=== PATIENT | female | born 1995 | race Caucasian/White ===

== ENCOUNTER 2017-02-17 06:11 | Emergency (ER) | payer OTHER ==
[2017-02-17 06:51] LABS: BASOPHIL % 0.4 % (0-2); PLATELET COUNT 287 x10^3mcL (130-400); RED CELL DISTRIBUTION WIDTH 13.1 % (11.5-14.5)
[2017-02-17 07:00] LABS: CALCIUM 9.4 mg/dL (8.5-10.1); CARBON DIOXIDE 24.3 mmol/L (21-32); CHLORIDE SERUM 102 mmol/L (98-107); CREATININE SERUM 0.7 mg/dL (0.6-1.0); GFR1 > 60 mL/min; GLUCOSE SERUM 104 mg/dL (74-106); POTASSIUM SERUM 3.3 mmol/L (3.5-5.1); SODIUM SERUM 139 mmol/L (136-145)
[2017-02-17 07:04] LABS: ALBUMIN 4.3 g/dL (3.4-5.0); ALKALINE PHOSPHATASE 55 U/L (46-116); ALT/SGPT 31 U/L (14-59); AMYLASE 36 U/L (25-115); AST/SGOT 27 U/L (15-37); BILIRUBIN TOTAL 0.36 mg/dL (0.20-1.00); LIPASE 107 IU/L (73-393); TOTAL PROTEIN, SERUM 8.5 g/dL (6.4-8.2)
[2017-02-17 07:27] LABS: UA SPECIFIC GRAVITY >=1.030 (1.005-1.035); microscopic required? YES; urine erythrocyte 2+ (NEGATIVE)
[2017-02-17 10:04] VITALS: BP 115/64
== END 2017-02-17 10:04 | disposition home or self-care (01) ==
LOC: ED 06:11
PROVIDERS: Emergency Medicine
DX: R10.31 Right lower quadrant pain (principal)
CPT/HCPCS: J1885; J2405; J7030

== ENCOUNTER 2017-04-04 18:14 | Emergency (ER) | payer OTHER ==
[~2017-04-04] VITALS: Ht 157.5 cm; Wt 67.1 kg
[2017-04-04 19:10] VITALS: BP 125/90
== END 2017-04-04 19:10 | disposition home or self-care (01) ==
LOC: ED 18:14
DX: H61.22 Impacted cerumen, left ear (principal); H66.92 Otitis media, unspecified, left ear

== ENCOUNTER 2018-11-25 22:16 | Emergency (ER) | payer OTHER ==
[~2018-11-25] VITALS: Ht 157.5 cm; Wt 73.9 kg
[2018-11-25 22:30] VITALS: Ht 157.5 cm; Wt 73.9 kg
[2018-11-25 23:14] VITALS: BP 130/82
== END 2018-11-25 23:14 | disposition home or self-care (01) ==
LOC: ED 22:16
DX: B34.9 Viral infection, unspecified (principal); Z90.89 Acquired absence of other organs; G43.909 Migraine, unspecified, not intractable, without status migrainosus

== ENCOUNTER 2019-05-21 02:21 | Emergency (ER) | payer OTHER ==
[~2019-05-21] VITALS: Ht 157.5 cm; Wt 77.1 kg
[2019-05-21 02:23] VITALS: Ht 157.5 cm; Wt 77.1 kg
[2019-05-21 02:56] LABS: BASOPHIL % 0.3 % (0-2); PLATELET COUNT 348 x10^3mcL (130-400); RED CELL DISTRIBUTION WIDTH 14.1 % (11.5-14.5)
[2019-05-21 03:05] LABS: CALCIUM 9.3 mg/dL (8.5-10.1); CARBON DIOXIDE 27.1 mmol/L (21-32); CHLORIDE SERUM 104 mmol/L (98-107); CREATININE SERUM 0.8 mg/dL (0.6-1.0); GFR1 > 60 mL/min; GLUCOSE SERUM 120 mg/dL (74-106); POTASSIUM SERUM 3.2 mmol/L (3.5-5.1); SODIUM SERUM 145 mmol/L (136-145)
[2019-05-21 03:10] LABS: ALBUMIN 4.5 g/dL (3.4-5.0); ALKALINE PHOSPHATASE 64 U/L (46-116); ALT/SGPT 38 U/L (14-59); AMYLASE 28 U/L (25-115); AST/SGOT 22 U/L (15-37); LIPASE 61 IU/L (73-393)
[2019-05-21 03:11] LABS: TOTAL PROTEIN, SERUM 8.7 g/dL (6.4-8.2)
[2019-05-21 03:59] VITALS: BP 114/65
== END 2019-05-21 03:59 | disposition home or self-care (01) ==
LOC: ED 02:21
PROVIDERS: Emergency Medicine
DX: K29.20 Alcoholic gastritis without bleeding (principal); G43.909 Migraine, unspecified, not intractable, without status migrainosus; Z90.89 Acquired absence of other organs
CPT/HCPCS: 36415; Q0162

== ENCOUNTER 2019-06-29 21:48 | Emergency (ER) | payer OTHER ==
[~2019-06-29] VITALS: Ht 157.5 cm; Wt 82.6 kg
[2019-06-29 21:57] VITALS: BP 139/58; Ht 157.5 cm; Wt 82.6 kg
== END 2019-06-29 23:41 | disposition left against medical advice (07) ==
LOC: ED 21:48
DX: Z53.21 Procedure and treatment not carried out due to patient leaving prior to being seen by health care provider (principal)

== ENCOUNTER 2020-08-10 16:59 | Emergency (ER) | payer OTHER, SELFPAY ==
[~2020-08-10] VITALS: Ht 157.5 cm; Wt 68.0 kg
[2020-08-10 17:00] VITALS: BP 139/84; Ht 157.5 cm; Wt 68.0 kg
== END 2020-08-10 18:42 | disposition home or self-care (01) ==
LOC: ED 16:59
DX: R05 Cough (principal); J02.9 Acute pharyngitis, unspecified; G43.909 Migraine, unspecified, not intractable, without status migrainosus; F17.210 Nicotine dependence, cigarettes, uncomplicated; Z90.89 Acquired absence of other organs; Z20.828 Contact with and (suspected) exposure to other viral communicable diseases
CPT/HCPCS: U0003